=== PATIENT | male | born 1985 | race Caucasian/White ===

== ENCOUNTER → 2020-11-12 | Outpatient (CLI) | payer BC | LOC: ULTRA 15:25 | PROVIDERS: ATTEND Nurse Practitioner | DX: R22.1 Localized swelling, mass and lump, neck (principal) ==

== ENCOUNTER → 2020-11-17 | Outpatient (CLI) | payer BC, OTHER | LOC: CAT 09:44 | PROVIDERS: ATTEND Family Medicine | DX: R22.1 Localized swelling, mass and lump, neck (principal) ==